=== PATIENT | female | born 1990 ===

== ENCOUNTER 2024-04-28 07:58 | Outpatient (CLI) | payer OTHER | END 2024-04-28 07:59 | disposition home or self-care (01) | LOC: CSHMAMMO 07:58 | PROVIDERS: ATTEND Obstetrics & Gynecology | DX: Z13.820 Encounter for screening for osteoporosis (principal); E28.39 Other primary ovarian failure; E28.310 Symptomatic premature menopause | CPT/HCPCS: 77080 ==